=== PATIENT | male | born 1975 | race American Indian/Alaskan Native ===

== ENCOUNTER 2017-04-05 09:56 | Emergency (ER) | payer MEDICAID ==
[2017-04-05 09:56] VITALS: BMI 28.0
== END 2017-04-05 10:49 | disposition left against medical advice (07) ==
LOC: ED 09:56
DX: Z02.89 Encounter for other administrative examinations (principal); R10.9 Unspecified abdominal pain

== ENCOUNTER 2017-11-25 11:46 | Emergency (ER) | payer MEDICAID ==
[2017-11-25 11:46] VITALS: BMI 28.0
--- NOTE | 2017-11-25 12:08 | ED PDOC ---
Arrival/HPI - General Chief Complaint: Fever Time Seen by Provider: 11/25/17 12:04 Historian: Patient - History of Present Illness Narrative History of Present Illness (Text): 11/25/17 12:05 42 y/o male, pmh including pharyngitis, nkda, c/o throat pain/fever/bodyache started yesterday. Aching pain, associated with swallowing, no change in speech , no fever or chills, no night sweat, no rash, no numbness or tingling, no palpitation, no neck stiffness, no change in vision, no other medical or psychological complaints. Past Medical History - Provider Review Nursing Documentation Reviewed: Yes - Infectious Disease Hx of Infectious Diseases: None - Tetanus Immunization Tetanus Immunization: Unknown - Past Medical History Past Medical History: No Previous - Psychiatric Hx Depression: No Hx Emotional Abuse: No Hx Physical Abuse: No Hx Substance Use: No - Past Surgical History Past Surgical History: No Previous - Anesthesia Hx Anesthesia: No - Suicidal Assessment Feels Threatened In Home Enviroment: No Family/Social History - Physician Review Nursing Documentation Reviewed: Yes Family/Social History: Unknown Family HX Smoking Status: Never Smoked Hx Alcohol Use: No Hx Substance Use: No Hx Substance Use Treatment: No Allergies/Home Meds Allergies/Adverse Reactions: Allergies No Known Allergies Allergy (Verified 09/19/17 10:11) Review of Systems - Review of Systems Constitutional: Fevers. absent: Fatigue Eyes: absent: Vision Changes ENT: Sore Throat. absent: Hearing Changes Respiratory: absent: SOB, Cough Cardiovascular: absent: Chest Pain Gastrointestinal: absent: Abdominal Pain, Nausea, Vomiting Musculoskeletal: absent: Arthralgias, Back Pain Skin: absent: Rash, Pruritis Neurological: absent: Headache, Dizziness Psychiatric: absent: Anxiety, Depression, Suicidal Ideation Physical Exam Vital Signs Reviewed: Yes Vital Signs Temp Pulse Resp BP Pulse Ox 11/25/17 14:10 98.7 F 11/25/17 14:03 99 H 18 121/71 99 11/25/17 13:25 99.2 F 11/25/17 11:53 102.1 F H 112 H 20 119/78 97 Temperature: Afebrile Blood Pressure: Normal Pulse: Regular Respiratory Rate: Normal Appearance: Positive for: Well-Appearing, Non-Toxic Pain Distress: Severe Mental Status: Positive for: Alert and Oriented X 3 - Systems Exam Head: Present: Atraumatic, Normocephalic Pupils: Present: PERRL Extroacular Muscles: Present: EOMI Conjunctiva: Present: Normal Ears: Present: NORMAL TM, Normal Canal. No: Erythema Mouth: Present: Moist Mucous Membranes Pharnyx: Present: ERYTHEMA. No: EXUDATE, TONSILS ENLARGED, Uvular Deviation, Muffled/Hoarse Voice, Soft Palate/Uvular Edema Nose (External): Present: Atraumatic. No: Abrasion, Contusion, Laceration, Lesions Nose (Internal): Present: Normal Inspection, No Active Bleeding. No: Rhinorrhea , Septal Hematoma, Epistaxis Neck: Present: Normal Range of Motion, Trachea Midline. No: Meningeal Signs, MIDLINE TENDERNESS, Paraspinal Tenderness, Lymphadenopathy Respiratory/Chest: Present: Clear to Auscultation, Good Air Exchange. No: Respiratory Distress, Accessory Muscle Use, Wheezes, Decreased Breath Sounds, Rales, Retracting, Rhonchi, Tachypneic, Tender to Palpation Cardiovascular: Present: Regular Rate and Rhythm, Normal S1, S2. No: Murmurs Abdomen: Present: Normal Bowel Sounds. No: Tenderness, Distention, Peritoneal Signs Back: Present: Normal Inspection Upper Extremity: Present: Normal Inspection. No: Cyanosis, Edema Lower Extremity: Present: Normal Inspection. No: Edema Neurological: Present: GCS=15, Speech Normal, Motor Func Grossly Intact, Gait Normal, Memory Normal Skin: Present: Warm, Dry, Normal Color. No: Rashes Psychiatric: Present: Alert, Oriented x 3, Normal Insight, Normal Concentration Medical Decision Making ED Course and Treatment: 11/25/17 12:08 -Rapid flu/ua -Chest xray -Tylenol/motrin -Observe and reassess 11/25/17 14:59 -Chest xray show no active disease -influenza is negative -UA show no UTI. -Fever resolved, no focal neurological deficits, eating and drinking well, request to be discharged home. -Discharge home with amoxicillin, motrin, salt water gargling, soft food diet, stay hydated, follow up with your own pmd and ENT within 2 days, return to the ER for any new or worsening signs or symptoms. - Lab Interpretations Lab Results: Lab Results 11/25/17 14:14: Urine Color Yellow, Urine Appearance Clear, Urine pH 6.0, Ur Specific [place] 1.025, Urine Protein 30 H, Urine Glucose (UA) Negative, Urine Ketones Negative, Urine Blood Trace-intact H, Urine Nitrate Negative, Urine Bilirubin Negative, Urine Urobilinogen 1.0 H, Ur Leukocyte Esterase Negative, Urine RBC 1 - 3, Urine WBC 0 - 2, Ur Epithelial Cells 1 - 3, Urine Bacteria Few 11/25/17 12:20: Influenza Typ A,B (EIA) Negative for flu a/b I have reviewed the lab results: Yes Interpretation: No clinic. lab abnormalty - RAD Interpretation Radiology Orders: 11/25/17 12:04 CHEST TWO VIEWS (PA/LAT) [RAD] Stat HISTORY: fever x 2 days COMPARISON: No prior. TECHNIQUE: Chest PA and lateral FINDINGS: LUNGS: No active pulmonary disease. PLEURA: No significant pleural effusion identified. No pneumothorax apparent. CARDIOVASCULAR: Normal. OSSEOUS STRUCTURES: No significant abnormalities. VISUALIZED UPPER ABDOMEN: Normal. OTHER FINDINGS: None. IMPRESSION: No active disease. Railway Patrol Officer: Radiologist - Medication Orders Current Medication Orders: Discontinued Medications Acetaminophen (Tylenol 325mg Tab) 650 mg PO STAT STA Stop: 11/25/17 12:05 Last Admin: 11/25/17 12:21 Dose: 650 mg Ketorolac Tromethamine (Toradol) 60 mg IM STAT STA Stop: 11/25/17 12:05 Last Admin: 11/25/17 12:20 Dose: 60 mg MAR Pain Assessment Document 11/25/17 12:20 GMD (Rec: 11/25/17 12:21 GMD [facility] [place]-[id number]) Pain Reassessment Is this a pain reassessment? No Sleep Is patient sleeping during reassessment? No Presence of Pain Presence of Pain Yes Pain Scale Used Pain Scale Used Numeric IM Administration Charges Document 11/25/17 12:20 GMD (Rec: 11/25/17 12:21 GMD [facility] [id number]) Injection Site MAR Injection Site Right Gluteus Cuco Charges for Administration # of IM Administrations 1 - PA / STUDENT AFFAIRS VICE PRESIDENT / Resident Statement /DO has reviewed & agrees with the documentation as recorded. Disposition/Present on Arrival - Present on Arrival Any Indicators Present on Arrival: No History of DVT/PE: No History of Uncontrolled Diabetes: No Urinary Catheter: No History of Decub. Ulcer: No History Surgical Site Infection Following: None - Disposition Have Diagnosis and Disposition been Completed?: Yes Diagnosis: Pharyngitis Disposition: HOME/ ROUTINE Disposition Time: 15:01 Patient Plan: Discharge Condition: GOOD Additional Instructions: -Discharge home with amoxicillin, motrin, salt water gargling, soft food diet, stay hydated, follow up with your own pmd and ENT within 2 days, return to the ER for any new or worsening signs or symptoms. Prescriptions: Amoxicillin 875 mg PO BID #20 tab Ibuprofen [Motrin Tab] 600 mg PO QID PRN #30 tab PRN Reason: Other Referrals: Rodrick Shah MD [Primary Care Provider] - Follow up with primary Trevon Wong DO [Staff Provider] - Follow up with primary Forms: [facility] [employer] (Libyan), WORK NOTE
--- NOTE | 2017-11-25 13:38 | RAD ---
HISTORY: fever x 2 days COMPARISON: No prior. TECHNIQUE: Chest PA and lateral FINDINGS: LUNGS: No active pulmonary disease. PLEURA: No significant pleural effusion identified. No pneumothorax apparent. CARDIOVASCULAR: Normal. OSSEOUS STRUCTURES: No significant abnormalities. VISUALIZED UPPER ABDOMEN: Normal. OTHER FINDINGS: None. IMPRESSION: No active disease.
[2017-11-25 14:04] VITALS: RESP 18; O2SAT 99
[2017-11-25 14:10] VITALS: TEMP 98.7
[2017-11-25 14:35] LABS: URINE BILIRUBIN NEGATIVE (NEGATIVE); URINE BLOOD TRACE-INTACT (NEGATIVE); URINE GLUCOSE (UA) NEGATIVE (NEGATIVE); URINE LEUKOCYTE ESTERASE NEGATIVE Leu/uL (NEGATIVE); URINE NITRATE NEGATIVE (NEGATIVE); URINE PROTEIN 30 mg/dL (<30 mg/dL)
[2017-11-25 14:46] LABS: URINE APPEARANCE CLEAR (CLEAR); URINE COLOR YELLOW (YELLOW)
[2017-11-25 14:48] LABS: URINE BACTERIA FEW (NEG); URINE WBC 0 - 2 /hpf (0-6)
[2017-11-25 15:10] VITALS: BP 118/69; PULSE 93
== END 2017-11-25 15:14 | disposition home or self-care (01) ==
LOC: ED 11:46
DX: J02.9 Acute pharyngitis, unspecified (principal)
CPT/HCPCS: 71046; 81001; 87804; 96372; 99285; J1885

== ENCOUNTER 2018-08-26 21:41 | Emergency (ER) | payer MEDICAID ==
[2018-08-26 21:52] VITALS: BMI 29.4
[2018-08-26 21:53] VITALS: BP 124/76; PULSE 87; RESP 18; TEMP 99; O2SAT 97
--- NOTE | 2018-08-26 22:38 | ED PDOC ---
Arrival/HPI - General Chief Complaint: GI Problem Time Seen by Provider: 08/26/18 21:56 Historian: Patient - History of Present Illness Narrative History of Present Illness (Text): 08/26/18 22:39 43 yo M w/ PMH of GERD, complaining of intermittent hiccups x 6 days, usually occurs after eating or after eating a large meal. States that he experiences symptoms of his GERD then gets hiccups. Denies any fevers, chills, chest pain, shortness of breath, abdominal pain, N/V/D. Has no other complaints. Past Medical History - Infectious Disease Hx of Infectious Diseases: None - Tetanus Immunization Tetanus Immunization: Unknown - Past Medical History Past Medical History: No Previous - Psychiatric Hx Depression: No Hx Emotional Abuse: No Hx Physical Abuse: No Hx Substance Use: No - Past Surgical History Past Surgical History: No Previous - Anesthesia Hx Anesthesia: No - Suicidal Assessment Feels Threatened In Home Enviroment: No Family/Social History Family/Social History: Unknown Family HX Smoking Status: Never Smoked Hx Alcohol Use: Yes Frequency of alcohol use: Socially Hx Substance Use: No Hx Substance Use Treatment: No Allergies/Home Meds Allergies/Adverse Reactions: Allergies No Known Allergies Allergy (Verified 09/19/17 10:11) Review of Systems - Review of Systems Constitutional: absent: Fatigue, Fevers Respiratory: absent: SOB, Cough Cardiovascular: absent: Chest Pain, Palpitations Gastrointestinal: Abdominal Pain (acid reflux). absent: Diarrhea, Vomiting Genitourinary Male: absent: Dysuria, Frequency Musculoskeletal: absent: Arthralgias, Back Pain Skin: absent: Rash, Pruritis Physical Exam Vital Signs Temp Pulse Resp BP Pulse Ox 08/26/18 21:52 99 F 87 18 124/76 97 Temperature: Afebrile Blood Pressure: Normal Pulse: Regular Respiratory Rate: Normal Appearance: Positive for: Well-Appearing, Non-Toxic, Comfortable (speaking in full sentences without hiccups ) Pain Distress: None Mental Status: Positive for: Alert and Oriented X 3 - Systems Exam Head: Present: Atraumatic, Normocephalic Pupils: Present: PERRL Extroacular Muscles: Present: EOMI Conjunctiva: Present: Normal Mouth: Present: Moist Mucous Membranes Neck: Present: Normal Range of Motion Respiratory/Chest: Present: Clear to Auscultation, Good Air Exchange. No: Respiratory Distress, Accessory Muscle Use Cardiovascular: Present: Regular Rate and Rhythm, Normal S1, S2. No: Murmurs Abdomen: No: Tenderness, Distention, Peritoneal Signs Back: Present: Normal Inspection Upper Extremity: Present: Normal Inspection. No: Cyanosis, Edema Lower Extremity: Present: Normal Inspection. No: Edema Neurological: Present: GCS=15, CN II-XII Intact, Speech Normal Skin: Present: Warm, Dry, Normal Color. No: Rashes Psychiatric: Present: Alert, Oriented x 3, Normal Insight, Normal Concentration Medical Decision Making ED Course and Treatment: 08/26/18 22:37 Plan : - EKG - Pepcid PO - Reglan PO EKG : NSR at 72 bpm, no acute ST changes, as read by PA On reevaluation, patient still w/o hiccups, denies any chest pain, shortness of breath, abdominal pain, N/V. On exam, patient remains awake alert and oriented 3 in no acute distress. Patient had no hiccups observed while in the Emergency room. Advised to follow up with primary care physician in 1-2 days without fail. Advised to take medication as prescribed. Return to the emergency room at any time for any new or worsening symptoms. Patient states he fully agrees with and understands discharge instructions. States that he agrees with the plan and disposition. Verbalized and repeated discharge instructions and plan. I have given the patient opportunity to ask any additional questions. - Medication Orders Current Medication Orders: Discontinued Medications Famotidine (Pepcid) 40 mg PO STAT STA Stop: 08/26/18 22:30 Metoclopramide HCl (Reglan) 10 mg PO STAT STA Stop: 08/26/18 22:30 - PA / VOCATIONAL REHAB CONSULTANT / Resident Statement / has reviewed & agrees with the documentation as recorded. Disposition/Present on Arrival - Present on Arrival Any Indicators Present on Arrival: No History of DVT/PE: No History of Uncontrolled Diabetes: No Urinary Catheter: No History of Decub. Ulcer: No History Surgical Site Infection Following: None - Disposition Have Diagnosis and Disposition been Completed?: Yes Diagnosis: Hiccups, GERD (gastroesophageal reflux disease) Disposition: HOME/ ROUTINE Disposition Time: 22:40 Patient Plan: Discharge Condition: STABLE Discharge Instructions (ExitCare): Hiccups, Acid Reflux (Gastroesophageal Reflux Disease), Adult (DC) Additional Instructions: Thank you for letting us take care of you today. You were treated for hiccups, h/o GERD. The emergency medical care you received today was directed at your acute symptoms. If you were prescribed any medication, please fill it and take as directed. It may take several days for your symptoms to resolve. Return to the Emergency Department if your symptoms worsen, do not improve, or if you have any other problems. Please contact your doctor in 2 days for re-evaluation and follow up. Bring any paperwork you were given at discharge with you along with any medications you are taking to your follow up visit. Our treatment cannot replace ongoing medical care by a primary care provider (PCP) outside of the emergency department. Thank you for allowing the [facility] team to be part of your care today. Prescriptions: Esomeprazole Magnesium [Nexium] 40 mg PO DAILY #30 tab Metoclopramide HCl [Reglan] 10 mg PO QID PRN #20 tablet PRN Reason: Hiccups Forms: [facility] [employer] (Malaysian), WORK NOTE
--- NOTE | 2018-08-27 15:19 | CARD ---
APPROVED REPORT Date of service: 08/26/2018 EKG Measurement Heart [id number] <Conclusion> Normal sinus rhythm Normal ECG
== END 2018-08-26 23:04 | disposition home or self-care (01) ==
LOC: ED 21:41
DX: R06.6 Hiccough (principal); K21.9 Gastro-esophageal reflux disease without esophagitis

== ENCOUNTER 2018-11-06 11:07 | Emergency (ER) | payer MEDICAID ==
[2018-11-06 11:12] VITALS: BMI 28.0
[2018-11-06 11:20] VITALS: BP 116/74; PULSE 81; RESP 18; TEMP 98.6; O2SAT 99
--- NOTE | 2018-11-06 12:07 | ED PDOC ---
Arrival/HPI - General Chief Complaint: Medical Clearance Time Seen by Provider: 11/06/18 11:10 Historian: Patient - History of Present Illness Narrative History of Present Illness (Text): 11/06/18 11:30 43 year old male, whose past medical history includes nkda, GERD, who presents to the Emergency department complaining of right-sided chest pain for the past 3 days. Patient states he recently bought a new set of 35 pound dumbbells and notes pain to right side of chest and right upper back area. Patient reports he wants to make sure it isn't his heart, noting the pain increases with breathing. Patient states he did not take any medication to alleviate the symptoms, but notes he took a hot shower to relax. Patient denies any nausea, vomiting, diarrhea, constipation, or any other complaints. Patient is a non-smoker. PMD: Nicky Nicholson Time/Duration: > week (Pt notes right-sided chest pain for past 3 days) Symptom Onset: Sudden Symptom Course: Unchanged Activities at Onset: Light Past Medical History - Provider Review Nursing Documentation Reviewed: Yes - Infectious Disease Hx of Infectious Diseases: None - Tetanus Immunization Tetanus Immunization: Unknown - Past Medical History Past Medical History: No Previous - Psychiatric Hx Depression: No Hx Emotional Abuse: No Hx Physical Abuse: No Hx Substance Use: No - Past Surgical History Past Surgical History: No Previous - Anesthesia Hx Anesthesia: No - Suicidal Assessment Feels Threatened In Home Enviroment: No Family/Social History - Physician Review Nursing Documentation Reviewed: Yes Family/Social History: No Known Family HX Smoking Status: Never Smoked Hx Alcohol Use: Yes Hx Substance Use: No Hx Substance Use Treatment: No Allergies/Home Meds Allergies/Adverse Reactions: Allergies No Known Allergies Allergy (Verified 11/06/18 11:20) Review of Systems - Physician Review All systems were reviewed & negative as marked: Yes - Review of Systems Cardiovascular: Chest Pain (Pt notes right-sided chest pain for past 3 days, increased with deep breathing). absent: Normal Gastrointestinal: Normal. absent: Abdominal Pain, Constipation, Diarrhea, Nausea, Vomiting Physical Exam Vital Signs Reviewed: Yes Vital Signs Temp Pulse Resp BP Pulse Ox 11/06/18 11:13 98.6 F 81 18 116/74 99 Temperature: Afebrile Blood Pressure: Normal Pulse: Regular Respiratory Rate: Normal Appearance: Positive for: Well-Appearing, Non-Toxic Pain Distress: Mild Mental Status: Positive for: Alert and Oriented X 3 - Systems Exam Head: Present: Atraumatic, Normocephalic Pupils: Present: PERRL Extroacular Muscles: Present: EOMI Conjunctiva: Present: Normal Mouth: Present: Moist Mucous Membranes Neck: Present: Normal Range of Motion Respiratory/Chest: Present: Clear to Auscultation, Good Air Exchange, Tender to Palpation (reproducable tenderness to palpitation of anterior chest wall on right side ). No: Wheezes, Rales, Rhonchi Cardiovascular: Present: Regular Rate and Rhythm, Normal S1, S2. No: Murmurs Abdomen: No: Tenderness, Distention, Peritoneal Signs Back: Present: Normal Inspection Upper Extremity: Present: Normal Inspection. No: Cyanosis, Edema Lower Extremity: Present: Normal Inspection. No: Edema Neurological: Present: GCS=15, CN II-XII Intact, Speech Normal Skin: Present: Warm, Dry, Normal Color. No: Rashes Psychiatric: Present: Alert, Oriented x 3, Normal Insight, Normal Concentration Medical Decision Making ED Course and Treatment: 11/06/18 11:30 Impression: 43 year old male who presents to the Emergency department complaining of right-sided chest pain for the past 3 days. Differential Diagnosis included but are not limited to: Plan: -- EKG -- X-Ray of chest -- Flexeril -- Lidoderm -- Toradol -- Reassess and disposition Prior Visits: Notes and results from previous visits were reviewed. Patient was last seen in the emergency department on 08/26/18 for intermittent hiccups x 6 days. Pt was discharged home in stable condition and was prescribed: Nexium 40 mg PO DAILY #30 tab and Reglan 10 mg PO QID PRN #20 tablet Progress Notes: - RAD Interpretation Narrative RAD Interpretations (Text): X-Ray of chest reviewed by radiologist, shows: Dictated by: Ranulfo Schroeder MD Dictated Date/Time: 11/06/18 13:24 Impression: No active disease. Radiology Orders: 11/06/18 11:39 CHEST PORTABLE [RAD] Stat Checkering Machine Adjuster: Radiologist - EKG Interpretation EKG Interpretation (Text): 11/06/18 11:37 EKG: Ordered, reviewed, and independently interpreted the EKG. Rate : 70 BPM Rhythm : NSR Interpretation : No ST-elevation Interpreted by ED Physician: Yes Type: 12 lead EKG - Medication Orders Current Medication Orders: Discontinued Medications Cyclobenzaprine HCl (Flexeril) 10 mg PO STAT STA Stop: 11/06/18 11:39 Ketorolac Tromethamine (Toradol) 60 mg IM STAT STA Stop: 11/06/18 11:39 Lidocaine (Lidoderm) 1 ea TD STAT STA Stop: 11/06/18 11:40 - Scribe Statement The provider has reviewed the documentation as recorded by the Scribe Tanya Cantrell All medical record entries made by the Scribe were at my direction and personally dictated by me. I have reviewed the chart and agree that the record accurately reflects my personal performance of the history, physical exam, medical decision making, and the department course for this patient. I have also personally directed, reviewed, and agree with the discharge instructions and disposition. Disposition/Present on Arrival - Present on Arrival Any Indicators Present on Arrival: No History of DVT/PE: No History of Uncontrolled Diabetes: No Urinary Catheter: No History of Decub. Ulcer: No History Surgical Site Infection Following: None - Disposition Have Diagnosis and Disposition been Completed?: Yes Diagnosis: Musculoskeletal chest pain Disposition: HOME/ ROUTINE Disposition Time: 12:04 Patient Plan: Discharge Condition: IMPROVED Discharge Instructions (ExitCare): Chest Pain That Is Not Caused by the Heart (DC), Costochondritis (DC), Chest Pain (ED) Print Language: CHINESE Additional Instructions: All medical record entries made by the Scribe were at my direction and personally dictated by me. I have reviewed the chart and agree that the record accurately reflects my personal performance of the history, physical exam, medical decision making, and the department course for this patient. I have also personally directed, reviewed, and agree with the discharge instructions and disposition. Prescriptions: Cyclobenzaprine [Cyclobenzaprine HCl] 10 mg PO PRN PRN #6 tab PRN Reason: Muscle Spasm Ibuprofen [Motrin Tab] 600 mg PO Q6H PRN 6 Days #24 tab PRN Reason: Pain, Moderate (4-7) Referrals: Nicky Lux MD [Primary Care Provider] - Follow up with primary Forms: [employer] (Romanian)
[2018-11-06] MEDS: Lidocaine 5% Patch TD STA (12:14)
--- NOTE | 2018-11-06 13:27 | RAD ---
Date of service: 11/06/2018 HISTORY: sob COMPARISON: 11/06/2018 FINDINGS: LUNGS: No active pulmonary disease. PLEURA: No significant pleural effusion identified, no pneumothorax apparent. CARDIOVASCULAR: No aortic atherosclerotic calcification present. Normal cardiac size. No pulmonary vascular congestion. OSSEOUS STRUCTURES: No significant abnormalities. VISUALIZED UPPER ABDOMEN: Normal. OTHER FINDINGS: None. IMPRESSION: No active disease.
--- NOTE | 2018-11-07 01:13 | CARD ---
APPROVED REPORT Date of service: 11/06/2018 EKG Measurement Heart [id number] <Conclusion> Normal sinus rhythm Normal ECG
== END 2018-11-06 12:19 | disposition home or self-care (01) ==
LOC: ED 11:07
DX: R07.89 Other chest pain (principal)
CPT/HCPCS: 71045; 93005; 96372; 99282; J1885

== ENCOUNTER 2019-01-29 22:03 | Emergency (ER) | payer MEDICAID ==
[2019-01-29 22:07] VITALS: BMI 28.0
[2019-01-29 22:15] VITALS: RESP 18
--- NOTE | 2019-01-29 22:26 | ED PDOC ---
Arrival/HPI - General Chief Complaint: Headache Historian: Patient - History of Present Illness Narrative History of Present Illness (Text): 01/29/19 22:26 43 year old male, with a past medical history of GERD and pharyngitis, who presents to the emergency department complaining of a mild, typical migraine x 1 day. Patient endorses photophobia, but denies any fever, chills, vomiting, chest pain or neck stiffness. Patient is also complaining of a chronic left ankle pain. Patient endorses ambulation with no difficulty, but denies any recent injury. Time/Duration: 24 hours Symptom Onset: Gradual Symptom Course: Unchanged Activities at Onset: Light Context: Home Past Medical History - Provider Review Nursing Documentation Reviewed: Yes - Infectious Disease Hx of Infectious Diseases: None - Tetanus Immunization Tetanus Immunization: Unknown - Past Medical History Past Medical History: No Previous - Cardiac Hx Cardiac Disorders: No - Hematological/Oncological Hx Blood Disorders: No - Musculoskeletal/Rheumatological Hx Musculoskeletal Disorders: No - Psychiatric Hx Depression: No Hx Emotional Abuse: No Hx Physical Abuse: No Hx Substance Use: No - Past Surgical History Past Surgical History: No Previous - Anesthesia Hx Anesthesia: No - Suicidal Assessment Feels Threatened In Home Enviroment: No Family/Social History - Physician Review Nursing Documentation Reviewed: Yes Family/Social History: Unknown Family HX Smoking Status: Never Smoked Hx Alcohol Use: Yes Hx Substance Use: No Hx Substance Use Treatment: No Allergies/Home Meds Allergies/Adverse Reactions: Allergies No Known Allergies Allergy (Verified 01/29/19 22:13) Review of Systems - Physician Review All systems were reviewed & negative as marked: Yes - Review of Systems Constitutional: absent: Fevers Respiratory: absent: SOB, Cough Cardiovascular: absent: Chest Pain Musculoskeletal: absent: Back Pain, Neck Pain Neurological: Headache. absent: Dizziness Physical Exam Vital Signs Temp Pulse Resp BP Pulse Ox 01/29/19 22:13 98.3 F 84 18 129/74 97 Temperature: Afebrile Blood Pressure: Normal Pulse: Regular Respiratory Rate: Normal Appearance: Positive for: Well-Appearing, Non-Toxic, Comfortable Pain Distress: None Mental Status: Positive for: Alert and Oriented X 3 - Systems Exam Head: Present: Atraumatic, Normocephalic Pupils: Present: PERRL Extroacular Muscles: Present: EOMI Conjunctiva: Present: Normal Mouth: Present: Moist Mucous Membranes Neck: Present: Normal Range of Motion Respiratory/Chest: Present: Clear to Auscultation, Good Air Exchange. No: Respiratory Distress, Accessory Muscle Use Cardiovascular: Present: Regular Rate and Rhythm, Normal S1, S2. No: Murmurs Abdomen: No: Tenderness, Distention, Peritoneal Signs Back: Present: Normal Inspection Upper Extremity: Present: Normal Inspection. No: Cyanosis, Edema Lower Extremity: Present: Normal Inspection. No: Edema Neurological: Present: GCS=15, Speech Normal Skin: Present: Warm, Dry, Normal Color. No: Rashes Psychiatric: Present: Alert, Oriented x 3, Normal Insight, Normal Concentration Medical Decision Making ED Course and Treatment: 01/29/19 22:25 Impression: 43 year old male presents to the Emergency department complaining of a mild. typical migraine x 1 day. Differential Diagnosis included but are not limited to: Plan: -- IV fluids -- Toradol -- Reglan -- X-ray right ankle -- Reassess and disposition Prior Visits: Notes and results from previous visits were reviewed. Progress Notes: - Scribe Statement The provider has reviewed the documentation as recorded by the Reece Navas All medical record entries made by the Scribpablo were at my direction and personal ly dictated by me. I have reviewed the chart and agree that the record accurately reflects my personal performance of the history, physical exam, medical decision making, and the department course for this patient. I have also personally directed, reviewed, and agree with the discharge instructions and disposition. Disposition/Present on Arrival - Present on Arrival Any Indicators Present on Arrival: No History of DVT/PE: No History of Uncontrolled Diabetes: No Urinary Catheter: No History of Decub. Ulcer: No History Surgical Site Infection Following: None - Disposition Have Diagnosis and Disposition been Completed?: Yes Diagnosis: Migraine headache Disposition: HOME/ ROUTINE Disposition Time: 00:40 Condition: IMPROVED Discharge Instructions (ExitCare): Migraine Headache (DC) Additional Instructions: NATALIIA PERALTA, thank you for letting us take care of you today. The emergency medical care you received today was directed at your acute symptoms. If you were prescribed any medication, please fill it and take as directed. It may take several days for your symptoms to resolve. Return to the Emergency Department if your symptoms worsen, do not improve, or if you have any other problems. Please contact your doctor or call one of the physicians/clinics you have been referred to that are listed on the Patient Visit Information form that is included in your discharge packet. Bring any paperwork you were given at discharge with you along with any medications you are taking to your follow up visit. Our treatment cannot replace ongoing medical care by a primary care provider outside of the emergency department. Thank you for allowing the [facility] team to be part of your care today. Follow up with your primary care doctor this week for re-evaluation and further management. Prescriptions: DiphenhydrAMINE [Benadryl] 25 mg PO Q6 PRN #15 cap PRN Reason: Insomnia Referrals: [facility], [Non-Staff] - Follow up with primary Forms: freee (Lebanese)
[2019-01-29] MEDS ORDERED: Sodium Chloride 0.9% 1,000 ML IV STA (22:55)
[2019-01-29 23:56] LABS: BASO # 0.01 K/mm3 (0.0-2.0); BASO % 0.1 % (0.0-3.0); EOS # 0.2 (0.0-0.7); EOS % 2.7 % (1.5-5.0); HEMOGLOBIN 13.9 g/dL (14.0-18.0); LYMPH # 2.8 (1.2-3.4); LYMPH % 41.7 % (22.0-35.0); MEAN CELL VOLUME 81.8 fl (80.0-105.0); MEAN CORPUSCULAR HEMOGLOBIN 27.1 pg (25.0-35.0); MEAN CORPUSCULAR HGB CONC 33.2 g/dl (31.0-37.0); MEAN PLATELET VOLUME 11.4 fl (7.0-11.0); MONO # 0.4 (0.1-0.6); MONO % 6.1 % (1.0-6.0); RBC 5.12 10^6/uL (3.5-6.1); RED CELL DISTRIBUTION WIDTH 14.3 % (11.5-14.5); WHITE BLOOD COUNT 6.7 10^3/uL (4.5-11.0)
[2019-01-30 00:09] LABS: ALB/GLOB RATIO 1.3 (1.1-1.8); ALBUMIN 4.2 g/dL (3.0-4.8); ALT/SGPT 33 U/L (7-56); AST/SGOT 29 U/L (17-59); BLOOD UREA NITROGEN 17 mg/dL (7-21); CALCIUM 9.2 mg/dL (8.4-10.5); GFR NON-AFRICAN AMERICAN > 60
[2019-01-30 01:04] VITALS: BP 133/71; PULSE 81; TEMP 98.2; O2SAT 98
--- NOTE | 2019-01-30 09:40 | RAD ---
Date of service: 01/30/2019 PROCEDURE: Left Ankle Radiographs. HISTORY: left ankle pain swelling COMPARISON: None available. FINDINGS: BONES: Normal. No fracture. JOINTS: Normal. No osteoarthritis. Ankle mortise maintained. Talar dome intact SOFT TISSUES: Normal. OTHER FINDINGS: None. IMPRESSION: Normal left ankle radiographs.
== END 2019-01-30 01:05 | disposition home or self-care (01) ==
LOC: ED 22:03
DX: G43.909 Migraine, unspecified, not intractable, without status migrainosus (principal); K21.9 Gastro-esophageal reflux disease without esophagitis
CPT/HCPCS: 73610; 80053; 85025; 96374; 96375; 99285; J1885; J2765; J7030